=== PATIENT | female | born 1985 | race Caucasian/White ===

== ENCOUNTER → 2016-11-04 | Outpatient (CLI) | payer BC ==
--- NOTE | 2016-11-04 10:14 | RAD ---
PROCEDURE Lumbar spine MRI without contrast. HISTORY Back pain and lower extremity radiculopathy. TECHNIQUE Multiplanar and multi sequence magnetic resonance imaging of the lumbar spine was performed without contrast. COMPARISON None. FINDINGS There is no significant listhesis. The vertebral bodies are normal in height. There is degenerative endplate remodeling signal change along the right aspect L4-L5. There is disc desiccation at this level, and to a lesser extent, L3-L4 and L5-S1. The conus terminates at L1. At L1-L2 and L2-L3, there is no stenosis. At L3-L4, there is a broad-based posterior disc protrusion and annular tear superimposed on a disc bulge and endplate remodeling. There is minimal right foraminal and central canal stenosis. At L4-L5, there is a broad-based posterior central to right paracentral disc protrusion with minimal inferior extrusion and annular tear superimposed on a disc bulge and endplate remodeling. There is mild right foraminal stenosis and slight effacement of the right lateral recess with minimal central canal stenosis. At L5-S1, there is a left foraminal to extra foraminal disc protrusion and annular tear. There is mild to moderate left foraminal stenosis with slight effacement of the exiting left L5 nerve root. IMPRESSION Degenerative change at the mid and lower lumbar levels, described in detail above. This results in minimal right foraminal and central canal stenosis at L3-L4, mild right foraminal and minimal central canal stenosis at L4-L5 and mild to moderate left foraminal stenosis at L5-S1. Electronically signed by: Sherry Loya (Nov 04, 2016 10:12:50)
== END | disposition home or self-care (01) ==
LOC: MRI 08:45
PROVIDERS: ATTEND Family Medicine
DX: M54.5 Low back pain (principal); M48.06 Spinal stenosis, lumbar region
CPT/HCPCS: 72148